=== PATIENT | female | born 1965 | race Caucasian/White ===

== ENCOUNTER 2020-05-06 13:27 | Emergency (ER) | payer BC ==
[~2020-05-06] VITALS: Ht 167.6 cm; Wt 65.9 kg
[2020-05-06 13:28] VITALS: Ht 167.6 cm; Wt 65.9 kg
[2020-05-06 14:51] LABS: BASOPHILS 0.9 % (0-2); EOSINOPHILS 6.3 % (0-7); HEMOGLOBIN 14.6 g/dL (12-16); IMMATURE GRANULOCYTES 0.4 % (0-5); MCH 31.2 pg (26.0-34.0); MCV 91.9 fL (80.0-100.0); MEAN PLATELET VOLUME 10.2 fL (7.4-10.4); MONOCYTES 4.4 % (2-11); PLATELET COUNT 240 10x3/uL (130-400); RBC 4.68 10x6/uL (4.00-5.40); RDW 12.6 % (11.5-14.5); WBC 5.7 10x3/uL (4.8-10.8)
[2020-05-06 14:57] LABS: APTT 28.6 SECONDS (22.8-39.4); INR 0.98 (0.85-1.17); PROTIME 12.9 SECONDS (11.6-15.0)
[2020-05-06 15:01] LABS: CALC OSMOLALITY 281 mosm/kg (275-300); CALCIUM 9.1 mg/dL (8.5-10.1); CARBON DIOXIDE 28.9 mmol/L (21.0-32.0); CHLORIDE - SERUM 105 mmol/L (98-107); CREATININE - SERUM 0.8 mg/dL (0.6-1.3); GLUCOSE 89 mg/dL (74-106); POTASSIUM - SERUM 3.4 mmol/L (3.5-5.1); SODIUM 141 mmol/L (136-145); UREA NITROGEN 17 mg/dL (7-18); eGFR NON AFRICAN AMERICAN 79 mL/min (90-120)
[2020-05-06 15:18] LABS: ALBUMIN 4.1 g/dL (3.4-5.0); ALKALINE PHOSPHATASE 108 U/L (30-120); ALT (SGPT) 87 U/L (10-68); BILIRUBIN - TOTAL 0.36 mg/dL (0.2-1.3); CKMB 1.1 U/L (0.0-3.6); CREATINE KINASE 66 UL (21-215); PROTEIN - SERUM 8.2 g/dL (6.4-8.2)
[2020-05-06 15:27] LABS: TROPONIN-I < 0.017 ng/mL (0.000-0.060)
[2020-05-06 18:20] VITALS: BP 121/77
== END 2020-05-06 18:20 | disposition home or self-care (01) ==
LOC: D.ER 13:27
PROVIDERS: Emergency Medicine
DX: R07.89 Other chest pain (principal); J45.909 Unspecified asthma, uncomplicated